=== PATIENT | female | born 1950 | race Two or more races ===

== ENCOUNTER 2022-11-29 14:18 | Emergency (ER) | payer OTHER ==
[~2022-11-29] VITALS: Ht 172.7 cm; Wt 97.5 kg
[2022-11-29] MEDS ORDERED: TENORMIN50 M1 (14:44)
[2022-11-29] MEDS ORDERED: AZOR 5-40 MG T1 EACH (14:44)
[2022-11-29] MEDS ORDERED: CHILDREN'S ASPI81 MG (14:45)
[2022-11-29] MEDS ORDERED: DAFLONEX-XL 11300 MG (14:45)
[2022-11-29] MEDS ORDERED: TRAM1TAB98 PO (19:32)
== END 2022-11-29 20:26 | disposition home or self-care (01) ==
LOC: ER 14:18
DX: S82.091A Other fracture of right patella, initial encounter for closed fracture (principal); S50.01XA Contusion of right elbow, initial encounter; W18.39XA Other fall on same level, initial encounter; Y93.89 Activity, other specified; Y92.89 Other specified places as the place of occurrence of the external cause